=== PATIENT | female | born 1960 | race Caucasian/White ===

== ENCOUNTER 2019-08-11 09:01 | Outpatient (CLI) | payer OTHER, SELFPAY ==
--- NOTE | ~2019-08-11 | MM_ITS ---
EXAMINATION: MM screening elvie BI w shantel HISTORY: Screening mammogram TECHNIQUE: Craniocaudal and mediolateral oblique 3-D tomosynthesis images were obtained and synthetic 2-D images were generated. CAD analysis was submitted and interpreted. COMPARISON: 07/06/2017, 01/25/2009 bilateral digital screening mammogram examinations BREAST PARENCHYMAL COMPOSITION: There are scattered areas of fibroglandular density. FINDINGS: There is no evidence of suspicious mass, calcification, or architectural distortion to sugg est malignancy in either breast. There has been no suspicious interval change. IMPRESSION: 1. No mammographic evidence of malignancy. 2. Recommend routine screening mammography in one year. BI-RADS Category 1: Negative Reviewed, dictated and finalized at location A. CAL ASSISTANT
== END 2019-08-11 09:02 | disposition home or self-care (01) ==
LOC: ANHIMG 09:04
PROVIDERS: PCP Internal Medicine; Visit Provider Nurse Practitioner
DX: Z12.31 Encounter for screening mammogram for malignant neoplasm of breast (principal)
CPT/HCPCS: 77063; 77067

== ENCOUNTER → 2020-04-11 11:20 | Outpatient (CLI) | payer OTHER, SELFPAY ==
--- NOTE | ~2020-04-11 | XR_ITS ---
EXAMINATION: XR chest 2V DATE: 04/11/2020 12:17 INDICATION: Encounter for screening for respiratory tuberculosis. TECHNIQUE: Frontal and lateral views of the chest were obtained. COMPARISON: Chest 2 views 01/16/2015 FINDINGS: The chest demonstrates clear lungs without pneumonia, pleural effusion, or pneumothorax. Th e heart size is normal. IMPRESSION: 1. No acute cardiopulmonary disease. Reviewed, dictated and finalized at location A.
== END ==
PROVIDERS: PCP Internal Medicine; Visit Provider Nurse Practitioner
DX: Z11.1 Encounter for screening for respiratory tuberculosis (principal)
CPT/HCPCS: 71046

== ENCOUNTER 2023-01-07 07:58 | Outpatient (CLI) | payer OTHER, SELFPAY ==
--- NOTE | ~2023-01-07 | MM_ITS ---
EXAMINATION: MM screening elvie BI w shantel HISTORY: Screening mammogram TECHNIQUE: Craniocaudal and mediolateral oblique 3-D tomosynthesis images were obtained and synthetic 2-D images were generated. CAD analysis was submitted and interpreted. COMPARISON: August 11, 2019, June 2017 bilateral screening mammogram examinations BREAST PARENCHYMAL COMPOSITION: There are scattered areas of fibroglandular density. FINDINGS: There is no evidence of suspicious mass, calcification, or architectural distortion to sugg est malignancy in either breast. There has been no suspicious interval change. IMPRESSION: 1. No mammographic evidence of malignancy. 2. Recommend routine screening mammography in one year. BI-RADS Category 1: Negative Reviewed, dictated and finalized at location A.
--- NOTE | ~2023-01-07 | DEXA_ITS ---
Bone Density Report Name: BRANDON WANG Age: 62 Sex: Female Ethnicity: White Date of : 1960 Indication: osteopenia; height loss; postmenopausal Referring Provider: MITALI ALVARADO Study: Bone densitometry was performed. Exam Date: January 07, 2023 Accession number: [id number] Bone Density: Region BMD T-score Z-score Classification AP Spine(L1-L4) 0.872 -1.6 0.1 Osteopenia Femoral Neck (Left) 0.784 -0.6 0.9 Normal Total Hip (Left) 0.989 0.4 1.5 Normal Femoral Neck (Right) 0.751 -0.9 0.6 Normal Total Hip (Right) 0.960 0.1 1.3 Normal Total Hip Mean 0.974 0.3 1.4 Normal World Health Organization criteria for BMD impression classify patients as: Normal (T-score at or above -1.0), Osteopenia (T-score between -1.0 and -2.5), or Osteoporosis (T-score at or below -2.5). 10-year Fracture Risk(1): Major Osteoporotic Fracture 7.3% Hip Fracture 0.4% Reported Risk Factors: [place] (), Neck BMD=0.751, BMI=31.5 (1) FRAX(R) Version 3.08. Fracture probability calculated for an untreated patient. Fracture probability may be lower if the patient has received treatment. Previous Exams: Region Exam Age BMD T-score BMD Change BMD Change Date g/cm2 vs Baseline vs Previous AP Spine (L1-L4) 01/07/2023 62 0.872 -1.6 -0.045 (-4.9%) -0.045 (-4.9%) 07/06/2017 57 0.917 -1.2 Total Hip(Left) 01/07/2023 62 0.989 0.4 -0.112 (-10.2% -0.112 (-10.2% 07/06/2017 57 1.101 1.3 Total Hip(Right) 01/07/2023 62 0.960 0.1 -0.053 (-5.3%) -0.053 (-5.3%) 07/06/2017 57 1.013 0.6 *Denotes significance at 95% confidence level, LSC for AP Spine = 0.022 g/cm2, LSC for Total Hip = 0.027 g/cm2 Clinical Information Provided by Patient: Has used the following medications: Vitamin D, Calcium Patient maximum height was 63 Menopause Age: 52 No regular weight bearing exercise Drinks caffeinated beverages Onset of menses at age 11 Number of children 2 Impression: The patient has low bone mass, based on the Total Spine T-score. The patient has an estimated ten-year risk of hip fracture of 0.4% and an estimated ten-year risk of major fracture of 7.3%, based on the WHO FRAX algorithm. The BMD for the AP Spine (L1-L4) decreased, changing by -4.9% since the last DXA exam. The BMD for the Total Hip(Left) decreased, changing by -10.2% since the last DXA exam. The BMD for the Total Hip(Right) decreased, changing by -5.3% since the last DX
== END 2023-01-07 07:59 | disposition home or self-care (01) ==
LOC: ANHIMG 07:59
PROVIDERS: PCP Internal Medicine; Visit Provider Nurse Practitioner
DX: Z12.31 Encounter for screening mammogram for malignant neoplasm of breast (principal); Z78.0 Asymptomatic menopausal state; M85.88 Other specified disorders of bone density and structure, other site
CPT/HCPCS: 77063; 77067; 77080

== ENCOUNTER 2023-10-23 07:11 | Outpatient (CLI) | payer OTHER, SELFPAY ==
[2023-10-23 08:01] LABS: Basophils Absolute Auto 0.1 K/mm3 (0.0-0.1); Basophils Percent Auto 1.1 % (0.2-1.2); Eosinophils Absolute Auto 0.2 K/mm3 (0-0.3); Eosinophils Percent Auto 3.6 % (0-4.4); Hematocrit 35.4 % (37.0-47.0); Immature Granulocyte Absolute 0.01 K/mm3 (0.00-0.031); Immature Granulocyte Percent A 0.2 % (0-0.5); Lymphocytes Absolute Auto 1.78 K/mm3 (0.9-3.2); Lymphocytes Percent Auto 39.8 % (18.3-44.2); Mean Corpuscular HGB Conc 31.1 g/dl (32-36); Mean Corpuscular Hemoglobin 25.2 pg (26-34); Mean Platelet Volume 9.8 fl (7.4-10.4); Monocytes Absolute Auto 0.3 K/mm3 (0.1-0.6); Monocytes Percent Auto 5.8 % (2.6-8.5); Neutrophils Absolute Auto 2.2 K/mm3 (1.3-6.7); Neutrophils Percent Auto 49.5 % (45.5-73.1); Platelet Count Result 242 k/mm3 (150-375); Red Blood Count 4.37 M/mm3 (4.2-5.4); Red Cell Distribution Width 14.9 % (11.5-14.5); White Blood Count 4.5 K/mm3 (4.5-10.0)
[2023-10-23 08:12] LABS: Alanine Aminotransferase 22 U/L (6-35); Albumin Level 4.4 g/dL (3.5-5.1); Alkaline Phosphatase 94 U/L (38-126); Anion Gap 5 mmol/L (4-12); Aspartate Amino Transferase 38 U/L (14-36); Bilirubin,Total 0.5 mg/dL (0.2-1.3); Blood Urea Nitrogen 18 mg/dL (7-17); Calcium 9.1 mg/dL (8.4-10.2); Carbon Dioxide 25 mmol/L (22-30); Chloride 109 mmol/L (98-107); Cholesterol 226 mg/dL (0-200); Estimated Glomerular Filt Rate 50; Glucose 101 mg/dL (65-110); HDL Direct 59 mg/dL; Sodium 139 mmol/L (137-145); Triglycerides 122 mg/dL (<150)
[2023-10-23 08:23] LABS: LDL Cholesterol Direct 134 mg/dL
[2023-10-23 08:56] LABS: Vitamin D 25 Hydroxy 38.2 ng/mL
== END 2023-10-23 07:12 | disposition home or self-care (01) ==
LOC: ANHLAB 07:12
PROVIDERS: PCP Internal Medicine; Visit Provider Nurse Practitioner
DX: E55.9 Vitamin D deficiency, unspecified (principal); I10 Essential (primary) hypertension
CPT/HCPCS: 36415; 80053; 80061; 82306; 85025

== ENCOUNTER 2024-08-23 08:59 | Outpatient (CLI) | payer MEDICARE, SELFPAY ==
[2024-08-23 10:07] LABS: Immature Reticulocyte Fraction 8.8 % (3.0-15.9); Reticulocyte Hemoglobin Conten 32.9 pg (28.2-36.6); Reticulocytes Absolute 0.07 10^6/uL (0.02-0.10)
[2024-08-23 10:24] LABS: Iron 105 ug/dL (37-170)
[2024-08-23 10:31] LABS: Alanine Aminotransferase 23 U/L (6-35); Albumin Level 4.4 g/dL (3.5-5.1); Alkaline Phosphatase 80 U/L (38-126); Anion Gap 8 mmol/L (4-12); Aspartate Amino Transferase 38 U/L (14-36); Bilirubin,Total 0.6 mg/dL (0.2-1.3); Blood Urea Nitrogen 18 mg/dL (7-17); Calcium 9.3 mg/dL (8.4-10.2); Carbon Dioxide 27 mmol/L (22-30); Chloride 107 mmol/L (98-107); Estimated Glomerular Filt Rate > 60; Glucose 88 mg/dL (65-110); Potassium 4.1 mmol/L (3.4-5.0); Sodium 142 mmol/L (137-145)
[2024-08-23 10:51] LABS: Percent Iron Saturation 28 % (20-50)
[2024-08-23 11:32] LABS: Folic Acid > 20.0 ng/mL (2.76->20)
== END 2024-08-23 09:00 | disposition home or self-care (01) ==
PROVIDERS: PCP Internal Medicine; Visit Provider Clinical Nurse Specialist
DX: D64.9 Anemia, unspecified (principal); I10 Essential (primary) hypertension
CPT/HCPCS: 36415; 80053; 82607; 82728; 82746; 83540; 83550; 84443; 85046

== ENCOUNTER 2024-08-24 10:42 | Outpatient (CLI) | payer MEDICARE, SELFPAY ==
[2024-08-24 11:27] LABS: Basophils Absolute Auto 0.1 K/mm3 (0.0-0.1); Eosinophils Absolute Auto 0.2 K/mm3 (0-0.3); Eosinophils Percent Auto 3.4 % (0-4.4); Hematocrit 41.6 % (37.0-47.0); Immature Granulocyte Absolute 0.01 K/mm3 (0.00-0.031); Immature Granulocyte Percent A 0.2 % (0-0.5); Lymphocytes Absolute Auto 1.96 K/mm3 (0.9-3.2); Lymphocytes Percent Auto 39.4 % (18.3-44.2); Mean Corpuscular HGB Conc 31.3 g/dl (32-36); Mean Corpuscular Hemoglobin 28.8 pg (26-34); Monocytes Absolute Auto 0.3 K/mm3 (0.1-0.6); Monocytes Percent Auto 5.6 % (2.6-8.5); Neutrophils Absolute Auto 2.5 K/mm3 (1.3-6.7); Neutrophils Percent Auto 50.4 % (45.5-73.1); Platelet Count Result 240 k/mm3 (150-375); Red Blood Count 4.52 M/mm3 (4.2-5.4); Red Cell Distribution Width 13.5 % (11.5-14.5)
--- OUTSIDE RECORDS SUMMARY | 2024-09-22 11:49 | XMS_ITS | Clinical Summary ---
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 Gender Identity Not on file Sexual Orientation Not on file Plan of Treatment Health Maintenance Due Date Last Done Comments Colorectal Cancer Screening Colonoscopy (10 Years) 1960 Hepatitis C 1977 DTaP, Tdap and Td Vaccines ( 1 - Tdap) 1978 Mammogram Screening 1999 Zoster Vaccines (1 of 2) 2009 COVID-19 Vaccine ( - 2023-2 5 season) 2024 Influenza Adult (#1) 2024 Dexa Scan (General) 2024 Pneumococcal Vaccine: 65+ Ye ars (1 of 1 - PCV) 2024 RSV Immunization or 60+ Years (1 - 1-dose 75+ series) 2034 Meningococcal B Vaccine Aged Out No l onger eligible based on patient's age to complete this topic Meningococcal Vaccine Aged Out No jennifer nino eligible based on patient's age to complete this topic Pneumococcal Vaccine: Pediat rics (0 to 5 Years) and At-Risk Patients (6 to 64 Years) Aged Out No longer eligible b ased on patient's age to complete this topic RSV Immunizations Under 20 Months Aged Out No longer eligible based on patient's age to complete this topic
== END 2024-08-24 10:43 ==
LOC: ANHGOSHLAB 09-22 10:42
PROVIDERS: PCP Internal Medicine; Visit Provider Clinical Nurse Specialist
DX: D64.9 Anemia, unspecified (principal)
CPT/HCPCS: 36415; 85025